=== PATIENT | female | born 1960 | race Caucasian/White ===

== ENCOUNTER 2023-12-26 14:00 | Emergency (ER) | payer MEDICARE, MEDICAID, SELFPAY ==
[2023-12-26] VITALS (8 sets, daily range): BP systolic 132–156; BP diastolic 69–98; PULSE 64–99; RESP 14–22; TEMP 36.1–37.1; O2SAT 90–98; BMI 32.3
--- NOTE | ~2023-12-26 | XR_ITS ---
EXAMINATION: XR CHEST CLINICAL INFORMATION: Change in mental status. COMPARISON: None available. TECHNIQUE: 2 views of the chest were obtained. FINDINGS: Heart size appears normal. There is no consolidation within either lung. No pleural effusion or pneumothorax. No acute osseous abnormality. XR/XR chest 2V IMPRESSION: Limited examination secondary to low lung volumes and body habitus. Within the limitations, no active disease is appreciated.
--- NOTE | 2023-12-26 14:08 | ECG_ITS ---
Test Reason : LATHARGIC Blood Pressure : / mmHG Vent. Rate : 058 BPM Atrial Rate : 058 BPM P-R Int : 168 ms QRS Dur : 072 ms QT Int : 494 ms P-R-T Axes : 025 016 034 degrees QTc Int : 484 ms Sinus bradycardia Otherwise normal ECG No previous ECGs available Referred By: Mehreen Calloway Electronically Signed By:CHRISTIAN ARCHULETA MD
--- NOTE | 2023-12-26 14:12 | ED.GENADULT ---
HPI - General Adult General Chief complaint: General Medical Stated complaint: ABNORMAL BEHAVIOR Source: patient and EMS Mode of arrival: EMS Limitations: altered mental status History of Present Illness HPI narrative: She presents via EMS coming from [facility]; transitional support services, a short-term residential program after detox or higher level of care, reportedly EMS was called for a ?psych evaluation . Upon their arrival she was noted to be endocrine in coherent, minimally responsive to their questions. Reportedly she received her 1st dose of methadone today at 95 mg. She is very lethargic upon arrival, she responds yes to any form of questioning and then soon thereafter falls back asleep. With loud verbal stimuli she does awake briefly, she denies any drug usage today. Unable to obtain history from patient Related Data Previous Rx's ?Medication ?Instructions ?Recorded cefuroxime axetil 250 mg tablet 250 mg PO Q12H #6 tabs 12/26/23 Allergies Allergy/AdvReac Type Severity Reaction Status Date / Time No Known Allergies Allergy Verified 12/26/23 16:31 Review of Systems Review of Systems: Yes all other systems are reviewed and are negative [facility] Past Medical History Attestation statement: The following information was validated with the patient. Source: old records reviewed Social History Social History Advance Directives: No Advance Directives Information Provided: No Do you have a plan to hurt others: No Plan Physical Exam ED Vital Signs: Vital Signs - 24 hr 12/26/23 15:43 12/26/23 15:55 12/26/23 16:36 Temperature 98.7 F 98.1 F Pulse Rate 87 77 Respiratory Rate 22 H 18 Blood Pressure 141/69 H 147/96 H Pulse Oximetry 94 94 Oxygen Delivery Method Room Air Room Air 12/26/23 17:15 12/26/23 18:06 12/26/23 20:09 Temperature 98.1 F 97.0 F 97.4 F Pulse Rate 67 64 99 Respiratory Rate 14 16 16 Blood Pressure 147/96 H 132/79 135/89 Pulse Oximetry 90 L 95 98 Oxygen Delivery Method Room Air Room Air Room Air 12/26/23 21:30 Temperature 97.4 F Pulse Rate 99 Respiratory Rate 16 Blood Pressure 135/89 Pulse Oximetry 98 Oxygen Delivery Method Room Air BMI result Body Mass Index 32.3 Appearance: Lethargic Eyes: Pupils equal, round and reactive to light, non constricted.? ENT: Pharynx normal.?? Neck: Normal inspection.? Neck supple.?? CVS: Heart sounds normal. Normal heart rate and rhythm.? Pulses normal.? Hypotensive? Respiratory: Decreased respirations Lung sounds with expiratory wheezing and prolonged expiratory phase Abdomen: Soft and non-tender. Normoactive bowel sounds. Skin: Skin warm and dry.? Skin appears pale for ethnicity.? ? Extremities: No lower extremity edema.? Neuro: Moves all extremities spontaneously. Course Reevaluation(s) Reevaluation #1: Nursing staff had difficulty obtaining IV access. Ultrasound-guided IV access was gained to the right antecubital. Good blood return and flushing well. Upon attempting to secure the IV she became more awake after intranasal Narcan administration pulling her arm away resulting in loss of the IV access. Adamant refusal to have re-attempt for IV access be obtained. She is violently aggressive towards staff yelling and swearing, I know you narcaned me . Time: 14:47 Reevaluation #2: CBC is without leukocytosis, normocytic anemia that does not meet transfusion criteria. Venous blood gases without evidence of respiratory acidosis. No electrolyte derangement. Magnesium 2.6, EKG reveals sinus bradycardia with ventricular rate of 58, no ST elevation, no ST depression, QT 494, QTC 484, reviewed by ED attending Dr. Brunson, recommendation for Mag 2g IV. Ammonia is within normal range. No evidence of CHF. Alcohol level nondetectable. Time: 14:57 Reevaluation #3: Patient received in sign-out at change of shift pending U tox, disposition. Patient is awake, oriented, ambulating to the bathroom without any assistance. She ambulates with a steady, even gait. The patient's U tox was negative except for methadone which she is prescribed. Patient expresses concern that she gets too many medications at once in the morning and ?this will keep happening. ? She would like to take half her methadone in the morning and half at night. The patient's UA also shows trace bacteria with 11-20 white cells and moderate leukocyte esterase. Time: 21:00 Medications Administered Discontinued Medications Generic Name Dose Route Start Last Admin Trade Name Freq PRN Reason Stop Dose Admin Albuterol Sulfate 2.5 mg 12/26/23 14:29 12/26/23 14:48 Albuterol Sulfate (0.083%) 2.5 Mg/3 Ml Vial.Neb INHALE 12/26/23 14:30 2.5 mg ONCE ONE Administration Albuterol/Ipratropium 3 ml 12/26/23 14:19 12/26/23 14:26 Albuterol/Iprat 2.5/0.5mg 3 Ml Ampul.Neb INHALE 12/26/23 14:20 3 ml ONCE ONE Administration Dicyclomine HCl 10 mg 12/26/23 15:43 12/26/23 16:38 Dicyclomine Hcl 10 Mg Capsule PO 12/26/23 15:44 Not Given ONCE ONE Magnesium Sulfate 2 gm in 50 mls @ 150 mls/hr 12/26/23 14:20 12/26/23 15:34 Magnesium Sulfate/H2o IV 12/26/23 14:39 Not Given ONCE ONE Ondansetron HCl 4 mg 12/26/23 15:45 12/26/23 16:37 Ondansetron Odt 4 Mg Tab.Rapdis TRANSLINGU 12/26/23 15:46 Not Given ONCE ONE Procedures EJ/Peripheral Line Arm L: Time Out Performed: Yes Skin Cleansed in Sterile Fashion: Yes Size (gauge): 20 IV Secured and Dressing Applied: Yes Patient Tolerated Procedure: well Additional Comments: patient subsequently removed IV access during agitation after Narcan administration. Medical Decision Making Medical Decision Making MDM Narrative: Patient is a 63-year-old female who presents to the emergency department coming from [facility], papers from facility indicate a history of kidney disease, COPD, ulcers, hepatitis-C, migraines, anemia, chronic back pain, substance use disorder presenting today lethargic, per EMS report she was sent here for a psych evaluation. She is arousable to loud verbal stimuli, providing minimal warranted responses. She is noted to have a prolonged expiratory phase with expiratory wheezing, given her history of COPD concern for CO2 retention, patient be placed on capnography, will obtain venous gas, history of hep C will obtain ammonia level as well, guven history of substance use and methadone, will trial intranasal narcan 4mg, CBC to evaluate for leukocytosis/ anemia, CMP and lipase to evaluate for abnormal electrolytes /abnormal renal function/ abnormal hepatic/biliary function, EKG and troponin to evaluate for ischemia/ACS. Chest x-ray to evaluate for consolidation/ infiltrate/ mass/ pulmonary congestion, toxicology, Urinalysis. Differential Diagnosis Differential Diagnoses: The differential diagnosis associated with the presentation includes (See narrative above) Admission/Observation Consideration of admission/observation: Escalation of care including admission/observation considered (See narrative above and course narrative for further detail) Lab Data 12/26/23 14:26 12/26/23 14:26 Labs: Lab Results 12/26/23 12/26/23 Range/Units 14:26 20:30 WBC 5.1 (4.8-10.8) X10*3/uL RBC 3.77 L (4.20-5.50) X10*6/uL Hgb 10.7 L (12.0-16.0) g/dl Hct 32.0 L (37.0-47.0) % MCV 84.9 (80.0-98.0) fL MCH 28.4 (27.0-33.0) pg MCHC 33.4 (31.0-35.0) g/dl RDW 14.3 (11.0-16.0) % Plt Count 218 (160-400) X10*3/uL MPV 10.3 (9.4-12.3) fL Immature Gran % (Auto) 0.2 (0.0-0.4) % Neut % (Auto) 47.6 (45-73) % Lymph % (Auto) 41.1 H (20-40) % Burnett % (Auto) 6.6 (2-11) % Eos % (Auto) 3.7 (0-4) % Baso % (Auto) 0.8 (0-2) % Lymph # (Auto) 2.1 (1.2-4.9) X10*3/uL [place]ett # (Auto) 0.3 (0.1-1.2) X10*3/uL Eos # (Auto) 0.2 (0.0-0.4) X10*3/uL Baso # (Auto) 0.0 (0.0-0.2) X10*3/uL Abs Immat Gran (auto) 0.01 (0.00-0.03) X10*3/uL Absolute Neuts (auto) 2.4 (2.0-8.3) x10*3/uL Absolute Nucleated RBC 0.000 (0.0-0.012) X10*3/uL Nucleated RBC % (auto) 0.0 (0.0-0.2) /100WBC PT 12.1 (11.1-13.3) SEC INR 1.0 (0.9-1.1) VBG pH 7.34 (7.32-7.43) VBG pCO2 37 mmHg VBG pO2 77 mmHg VBG HCO3 20 L (22-26) mmol/L VBG O2 Saturation 97.0 % VBG Base Excess -4.3 mmol/L Sodium 138 (135-145) mmol/L Potassium 4.3 (3.3-5.1) mmol/L Chloride 108 (96-108) mmol/L Carbon Dioxide 20 L (22-29) mmol/L Anion Gap 14 (12-20) BUN 15 (9-16) mg/dL Creatinine 1.38 (0.5-1.4) mg/dL Estim Creat Clear Calc TNP Estimated GFR 38 Random Glucose 126 H (60-115) mg/dL Calcium 8.6 (8.4-10.2) mg/dL Magnesium 2.6 (1.6-2.6) mg/dL Total Bilirubin 0.2 (0.0-1.0) mg/dL AST 13 (5-31) U/L ALT 7 (0-31) U/L Alkaline Phosphatase 84 (39-117) U/L Ammonia 38 (13-55) umol/L Troponin I High Sens < 2.7 (<3.5-17.0) ng/L B-Natriuretic Peptide 46 (<100) pg/mL Total Protein 7.3 (6.5-8.0) g/dL Albumin 4.2 (3.5-5.0) g/dL Lipase 16 (8-78) U/L Urine Color Yellow Urine Appearance Clear Urine pH 7.5 (5.0-9.0) Ur Specific [place] 1.010 (1.005-1.025) Urine Protein Negative (Neg-Trace) mg/dL Urine Glucose (UA) Negative (Negative) mg/dL Urine Ketones Negative (Negative) mg/dL Urine Blood Negative (Negative) Urine Nitrite Negative (Negative) Ur Leukocyte Esterase Moderate (2+) H (Negative) Urine RBC 0-2 (0-2) /HPF Urine WBC 11-20 H (0-5) /HPF Ur Squamous Epith Cells 11-20 (0-2) /HPF Urine Bacteria Trace (None Seen) Hyaline Casts 0-2 (0-2) /LPF Urine Opiates Screen Not Detected (Not Detect) Ur Buprenorphine Scrn Not Detected (Not Detect) ng/mL Ur Oxycodone Screen Not Detected (Not Detect) ng/mL Urine Methadone Screen Positive H (Not Detect) ng/mL Urine Fentanyl Screen Not Detected (Not Detect) Ur Barbiturates Screen Not Detected (Not Detect) Ur Phencyclidine Scrn Not Detected (Not Detect) Ur Amphetamines Screen Not Detected (Not Detect) U Benzodiazepines Scrn Not Detected (Not Detect) Urine Cocaine Screen Not Detected (Not Detect) U Marijuana (THC) Screen Not Detected (Not Detect) Ethyl Alcohol < 10 mg/dL Influenza Type A (PCR) NEGATIVE (Negative) Influenza Type B (PCR) NEGATIVE (Negative) RSV RNA Qual (PCR) NEGATIVE (Negative) SARS-CoV-2 RNA (RT-PCR) NEGATIVE (Negative) Critical Care Time Critical Care Time Critical Care Time: Yes Total Critical Care Time: 60 Attestation: I personally attest to this critical care time spent taking care of the patient exclusive of all other billable procedures was approximately 60 minutes including initial evaluation of patient, ordering tests, x-ray interpretation, EKG interpretation, medical consultation, documentation, re-evaluation. Discharge Plan Discharge Clinical Impression: Altered mental status, Urinary tract infection Patient Disposition: Home, Self-Care Instructions: Urinary Tract Infection in Women (ED) Additional Instructions: Your workup was significant for UTI. Take the cefuroxime twice daily for 3 days Your tox screen did not show anything except for methadone which you are prescribed. I recommed that you take half of your dose in the morning and half at night to prevent polypharmacy Prescriptions: New cefuroxime axetil 250 mg tablet 250 mg PO Q12H Qty: 6 0RF Interventions: ED Discharge Assessment Last Done: 12/26/23 21:30 Discharge Date/Time: 12/26/23 21:30 Print Language: Turkmen
[2023-12-26] MEDS: Albuterol/Iprat 2.5/0.5MG 3 ML AMPUL.NEB INHALE (14:26)
[2023-12-26 14:31] LABS: MANUAL DIFF FLAG NO
[2023-12-26 14:33] LABS: Basophils Percent Auto 0.8 % (0-2); Eosinophils Absolute Auto 0.2 X10*3/uL (0.0-0.4); Eosinophils Percent Auto 3.7 % (0-4); Hemoglobin 10.7 g/dl (12.0-16.0); Imm Gran Abs Auto 0.01 X10*3/uL (0.00-0.03); Imm Gran Pct Auto 0.2 % (0.0-0.4); Lymphocytes Absolute Auto 2.1 X10*3/uL (1.2-4.9); Lymphocytes Percent Auto 41.1 % (20-40); Mean Corpuscular HGB Conc 33.4 g/dl (31.0-35.0); Mean Corpuscular Hemoglobin 28.4 pg (27.0-33.0); Mean Corpuscular Volume 84.9 fL (80.0-98.0); Mean Platelet Volume 10.3 fL (9.4-12.3); Monocytes Absolute Auto 0.3 X10*3/uL (0.1-1.2); Monocytes Percent Auto 6.6 % (2-11); Neutrophils Absolute Auto 2.4 x10*3/uL (2.0-8.3); Neutrophils Percent Auto 47.6 % (45-73); Platelet Count 218 X10*3/uL (160-400); Red Blood Count 3.77 X10*6/uL (4.20-5.50); Red Cell Distribution Width 14.3 % (11.0-16.0); White Blood Count 5.1 X10*3/uL (4.8-10.8)
[2023-12-26 14:34] LABS: VBG Base Excess -4.3 mmol/L; VBG HCO3 20 mmol/L (22-26); VBG pCO2 37 mmHg; VBG pH 7.34 (7.32-7.43); VBG pO2 77 mmHg
[2023-12-26 14:36] LABS: Venous Blood Gas Refer to POC result
[2023-12-26 14:38] LABS: Prothrombin Time 12.1 SEC (11.1-13.3)
[2023-12-26 14:39] LABS: Ammonia 38 umol/L (13-55)
[2023-12-26 14:46] LABS: Ethanol < 10 mg/dL
[2023-12-26] MEDS: Albuterol Sulfate (0.083%) 2.5 MG/3 ML VIAL.NEB INHALE (14:48)
[2023-12-26 14:49] LABS: Alanine Aminotransferase 7 U/L (0-31); Albumin Level 4.2 g/dL (3.5-5.0); Alkaline Phosphatase 84 U/L (39-117); Anion Gap 14 (12-20); Aspartate Amino Transferase 13 U/L (5-31); Bilirubin Total 0.2 mg/dL (0.0-1.0); Blood Urea Nitrogen 15 mg/dL (9-16); Calcium 8.6 mg/dL (8.4-10.2); Carbon Dioxide 20 mmol/L (22-29); Chloride 108 mmol/L (96-108); Estimated Glomerular Filt Rate 38; Glucose Random 126 mg/dL (60-115); Lipase 16 U/L (8-78); Magnesium 2.6 mg/dL (1.6-2.6); Potassium 4.3 mmol/L (3.3-5.1); Sodium 138 mmol/L (135-145); Total Protein 7.3 g/dL (6.5-8.0)
[2023-12-26 14:53] LABS: B Type Natriuretic Peptide 46 pg/mL (<100)
[2023-12-26 14:58] LABS: Troponin-I High Sensitivity < 2.7 ng/L (<3.5-17.0)
[2023-12-26 15:30] LABS: Influenza A PCR NEGATIVE (Negative); Influenza B PCR NEGATIVE (Negative); Resp Syncy Virus RNA Qual PCR NEGATIVE (Negative); SARS COV2 PCR INHOUSE NEGATIVE (Negative)
--- NOTE | 2023-12-26 15:35 | PC.NURSE ---
Upon arrival patient lethargic and arousable to verbal and tactile stimulation. hypotensive, provider aware. Multiple attempts made to get IV access by RN and provider using ultrasound unsucesful. Patient given 4mg nasal narcan and became more alert. Comabtive during attempt to place IV. Removed IV, removed, leads, refusing admin of any medications. Agitated that narcan was given
--- NOTE | 2023-12-26 16:12 | MHC.EDTECH ---
THIS PCT ASSUMED CARE OF PATIENT AT 1500 ,PATIENT WAS CHANGE INTO HOSPITAL ATTIRE , ALL PATIENT BELONGING ARE LOCKED UP IN DECON .PATIENT IS VERY ALTERED RN LEAD IS AWARE ,PATIENT OBSERVER AT BEDSIDE .
--- NOTE | 2023-12-26 16:38 | PC.NURSE ---
Patient returned from imaging, vss, nsr on monitor. Patient aware that provider ordered po medication. stating no she is not taking any medications . becomes agitated when trying to obtain vitals signs, falls back to sleep easily
--- NOTE | 2023-12-26 18:47 | PC.NURSE ---
Patient resting comfortably, vss, denies pain or discomfort , nsr on monitor. awakaens to verbal stimul, reports feels fine
--- NOTE | 2023-12-26 20:06 | PC.NURSE ---
this rn assumed care of pt, pt arousable by name,alert and oriented. pt at this time reporting she feels better and would like to leave, pt instructed to provider urine sample at this time per provider order.
[2023-12-26 20:43] LABS: Appearance Urine Clear; Color Urine Yellow; Glucose Urine UA Negative (Negative); Leukocyte Esterase Urine Moderate (2+) (Negative); Nitrite Urine Negative (Negative); PH 7.5 (5.0-9.0); UMIC TRIGGER UACC YES; Urine Blood Negative (Negative); Urine Ketones Negative (Negative); Urine Protein Negative (Neg-Trace)
[2023-12-26 20:48] LABS: Bacteria Urine Trace (None Seen); Hyaline Casts Urine 0-2 /LPF (0-2); RBC Urine 0-2 /HPF (0-2); UACC Culture Trigger YES
[2023-12-26 20:53] LABS: Amphetamine Screen Urine Not Detected (Not Detect); Barbiturates, Urine Not Detected (Not Detect); Benzodiazepines Screen Urine Not Detected (Not Detect); Buprenorphine Scr Not Detected (Not Detect); Cannabinoid Screen Urine Not Detected (Not Detect); Cocaine Screen Urine Not Detected (Not Detect); Fentanyl, urine Not Detected (Not Detect); Methadone Screen, Urine Positive (Not Detect); Opiate Screen Urine Not Detected (Not Detect); Oxycodone Screen Urine Not Detected (Not Detect); Phencyclidine Screen Urine Not Detected (Not Detect)
--- NOTE | 2023-12-26 21:14 | PC.NURSE ---
attempted to reach [facility] for transport for pt, no answer at this time.
--- NOTE | 2023-12-26 21:23 | PC.NURSE ---
dry pan charger Trista booked janny for pt, pt ambulated to decon with steady giat.
== END 2023-12-26 21:30 | disposition home or self-care (01) ==
PROVIDERS: Nurse Practitioner Family; Emergency Provider Student in an Organized Health Care Education/Training Program
DX: N39.0 Urinary tract infection, site not specified (principal); R41.82 Altered mental status, unspecified; R06.2 Wheezing; R53.83 Other fatigue; R45.1 Restlessness and agitation; F11.20 Opioid dependence, uncomplicated; Z11.52 Encounter for screening for COVID-19; Z20.828 Contact with and (suspected) exposure to other viral communicable diseases
CPT/HCPCS: 0241U; 36415; 36573; 71046; 80053; 80307; 81001; 82140; 82803; 83690; 83735; 83880; 84484; 85025; 85610; 87086; 93005; 99284; 99285

== ENCOUNTER → 2023-12-26 14:08 | Outpatient (BNV) | payer MEDICAID, SELFPAY | PROVIDERS: Emergency Provider Student in an Organized Health Care Education/Training Program; Visit Provider Internal Medicine Cardiovascular Disease | DX: R00.1 Bradycardia, unspecified (principal) | CPT/HCPCS: 93010 ==

== ENCOUNTER 2024-07-23 18:11 | Inpatient (IN) | payer MEDICARE, MEDICAID, SELFPAY ==
--- NOTE | 2024-07-23 19:19 | PC.ADMIT ---
Pt. arrived on unit via stretcher at 18:25 accompanied by 2 horse trader. Pt. hyperverbal and initially uncooperative with changeover. Eventually changeover with skin check and contraband search was conducted. Pt. with bald, red area on scalp which she is requesting to be biopsied. Open area L ear. Pt. refusing to give up jewelry for safekeeping so assistance from security was needed.
[2024-07-23 19:47] VITALS: BP 161/92; PULSE 65; RESP 22; TEMP 36.6; O2SAT 93
--- NOTE | 2024-07-23 19:51 | PC.NURSE ---
[facility] notified with pt. name and location per her request.
[2024-07-24] MEDS: Omeprazole 20 MG CAPSULE.DR PO (06:38)
[2024-07-24 08:00] VITALS: BP 167/93; PULSE 77; RESP 18; TEMP 36.3; O2SAT 97
[2024-07-24] MEDS: amLODIPine Besylate 2.5 MG TABLET PO (09:18)
[2024-07-24] MEDS: lisinopriL 10 MG TABLET PO (09:18)
[2024-07-24] MEDS: clonazePAM 1 MG TABLET PO ×2 (09:18→20:25)
[2024-07-24] MEDS: FLUoxetine HCl 20 MG CAPSULE PO (09:18)
[2024-07-24] MEDS: Cholecalciferol (Vitamin D3) 25 MCG TABLET PO (09:18)
[2024-07-24] MEDS: Gabapentin 400 MG CAPSULE 800 MG PO ×3 (09:18→20:25)
[2024-07-24] MEDS: Furosemide 40 MG TABLET PO (09:18)
[2024-07-24] MEDS: methADONE HCl 20 MG/2 ML ORAL.CONC 130 MG PO (09:21)
[2024-07-24] MEDS: Fluticasone Propionate Nasal 16 GM SPRAY 1 SPRAY NOSTRIL-B ×2 (09:29→20:18)
[2024-07-24] MEDS: Topiramate 25 MG TABLET PO (09:29)
[2024-07-24] MEDS: cloNIDine HCL 0.2 MG TABLET PO ×2 (09:29→20:57)
[2024-07-24] MEDS: Promethazine HCL 25 MG TABLET 50 MG PO ×2 (09:45→20:20)
--- NOTE | 2024-07-24 10:05 | PM.IMHP ---
History of Present Illness Date of Service: 07/24/24 Attending physician on admission: Soham Naylor Chief Complaint: I have anxiety issues and taking high doses of benzodiazepines Kaleigh Fallon is a 64 years old woman past medical history significant for hypertension and PUD has been admitted to the geropsych unit. She seems very concerned about no receiving her medications yet. She also stated that she take high doses of benzodiazepines such as clonazepam and Xanax. She denied any acute complaint such as pain. She denied any acute cardiopulmonary, gastrointestinal or genitourinary symptoms. She stated that she takes methadone for chronic pain that she has been clean for a long time. Review of Systems Review of Systems: All 12 systems were reviewed and normal except as noted in HPI. [facility] Medical History (Updated 07/24/24 @ 10:07 by Soham Naylor MD) Essential hypertension PUD (peptic ulcer disease) Surgical History (Updated 07/24/24 @ 10:07 by Soham Naylor MD) H/O sinus surgery Social History Household Members: None Housing: Homeless Do you presently have visiting nurse or other home services: No Patient Tobacco Use Status: Former Tobacco user Use of substances other than those prescribed or required for medical reasons: No Have you been hit, kicked, punched, or otherwise hurt by someone within the past year? If so, by whom?: No Spiritual Healthcare Practices: congregational Advance Directives: No Advance Directives Information Provided: No Do you have a plan to hurt others: No Plan Recently lost weight without trying: No Nutrition Risks: No Nutritional Risk Patient : No : No Poor oral hygiene: Yes Meds Allergies Allergy/AdvReac Type Severity Reaction Status Date / Time codeine Allergy Unknown Verified 07/23/24 22:55 Sulfa (Sulfonamide Allergy Unknown Verified 07/23/24 22:55 Antibiotics) Active Medications: Current Medications Acetaminophen (Acetaminophen 325 Mg Tablet) 650 mg PO Q6H PRN PRN Reason: Headache/Pain Mild Scale (1-3) Al Hydroxide/Mg Hydroxide (Magnesium Hydrox/Alum Hydrox 30 Ml Oral.Susp) 30 ml PO Q6H PRN PRN Reason: Heartburn/Nausea Albuterol Sulfate (Albuterol Sulfate 90 Mcg 8 Gm Inhaler) 1 puff INHALE Q2H PRN PRN Reason: asthma Alprazolam (Alprazolam 0.5 Mg Tablet) 1 mg PO DAILY PRN PRN Reason: panic attack Amlodipine Besylate (Amlodipine Besylate 2.5 Mg Tablet) 2.5 mg PO DAILY [facility]; Protocol Last Admin: 07/24/24 09:18 Dose: 2.5 mg Clonazepam (Clonazepam 1 Mg Tablet) 1 mg PO BID [facility] Last Admin: 07/24/24 09:18 Dose: 1 mg Clonidine HCl (Clonidine Hcl 0.2 Mg Tablet) 0.2 mg PO TID [facility]; Protocol Last Admin: 07/24/24 09:29 Dose: 0.2 mg Diphenhydramine HCl (Diphenhydramine Hcl 25 Mg Capsule) 50 mg PO BEDTIME PRN PRN Reason: insomnia Fluoxetine HCl (Fluoxetine Hcl 20 Mg Capsule) 20 mg PO DAILY [facility] Last Admin: 07/24/24 09:18 Dose: 20 mg Fluticasone Propionate (Fluticasone Propionate Nasal 16 Gm [place]) 1 spray NOSTRIL-B BID [facility] Last Admin: 07/24/24 09:29 Dose: 1 spray Furosemide (Furosemide 40 Mg Tablet) 40 mg PO DAILY [facility]; Protocol Last Admin: 07/24/24 09:18 Dose: 40 mg Gabapentin (Gabapentin 400 Mg Capsule) 800 mg PO TID [facility] Last Admin: 07/24/24 09:18 Dose: 800 mg Hydroxyzine HCl (Hydroxyzine Hcl 25 Mg Tablet) 25 mg PO Q6H PRN PRN Reason: Anxiety Lisinopril (Lisinopril 10 Mg Tablet) 10 mg PO DAILY [facility]; Protocol Last Admin: 07/24/24 09:18 Dose: 10 mg Magnesium Hydroxide (Milk Of Magnesia 30 Ml Oral.Susp) 30 ml PO DAILY PRN PRN Reason: Constipation Methadone HCl (Methadone Hcl 20 Mg/2 Ml Oral.Conc) 130 mg PO DAILY [facility] Last Admin: 07/24/24 09:21 Dose: 130 mg Mirtazapine (Mirtazapine 30 Mg Tablet) 30 mg PO BEDTIME [facility] Nicotine (Nicotine 21 Mg Patch.Td24) 21 mg TRANSDERMA DAILY [facility] Last Admin: 07/24/24 09:47 Dose: Not Given Nicotine Polacrilex (Nicotine Polacrilex 2 Mg Gum) 2 mg BUCCAL Q2H PRN PRN Reason: Nicotine Cravings Omeprazole (Omeprazole 20 Mg Capsule.Dr) 20 mg PO DAILY@0630 [facility] Last Admin: 07/24/24 06:38 Dose: 20 mg Promethazine HCl (Promethazine Hcl 25 Mg Tablet) 50 mg PO Q8H PRN PRN Reason: nausea Last Admin: 07/24/24 09:45 Dose: 50 mg Topiramate (Topiramate 25 Mg Tablet) 25 mg PO DAILY [facility] Last Admin: 07/24/24 09:29 Dose: 25 mg Trazodone HCl (Trazodone Hcl 50 Mg Tablet) 50 mg PO BEDTIME MRX1 PRN PRN Reason: Insomnia Vitamin D (Cholecalciferol (Vitamin D3) 25 Mcg Tablet) 25 mcg PO DAILY [facility] Last Admin: 07/24/24 09:18 Dose: 25 mcg Home Medications ?Medication ?Instructions ?Recorded ?Confirmed ?Last Taken ?Type albuterol sulfate 90 mcg/actuation 1 puff inhalation Q2H PRN asthma 07/23/24 07/24/24 Unknown History aerosol inhaler alprazolam 1 mg tablet 1 mg PO DAILY PRN panic attack 07/23/24 07/24/24 Unknown History amlodipine 2.5 mg tablet 2.5 mg PO DAILY blood pressure 07/23/24 07/24/24 Unknown History diphenhydramine HCl 50 mg capsule 50 mg PO BEDTIME PRN insomnia 07/23/24 07/24/24 Unknown History (Banophen) Topamax 25 mg PO DAILY 07/24/24 07/24/24 Unknown History cholecalciferol (vitamin D3) 25 mcg PO DAILY 07/24/24 07/24/24 Unknown History clonazepam 1 mg tablet 1 mg PO BID anxiety 07/24/24 07/24/24 Unknown History clonidine HCl 0.2 mg tablet 0.2 mg PO TID anxiety 07/24/24 07/24/24 Unknown History docusate sodium 100 mg PO 07/24/24 Unknown History fluoxetine 20 mg PO DAILY 07/24/24 07/24/24 Unknown History fluticasone propionate 50 1 spray intranasal BID 07/24/24 07/24/24 Unknown History mcg/actuation nasal spray,suspension furosemide 40 mg tablet 40 mg PO DAILY 07/24/24 07/24/24 Unknown History gabapentin 800 mg tablet 800 mg PO TID 07/24/24 07/24/24 Unknown History ibuprofen 800 mg tablet 800 mg PO Q8H PRN pain 07/24/24 07/24/24 Unknown History lisinopril 10 mg tablet 10 mg PO DAILY 07/24/24 07/24/24 Unknown History methadone 130 mg PO DAILY 07/24/24 07/24/24 Unknown History mirtazapine 30 mg tablet 30 mg PO BEDTIME 07/24/24 07/24/24 Unknown History nicotine 21 mg transdermal DAILY 07/24/24 07/24/24 Unknown History omeprazole 20 mg capsule,delayed 20 mg PO QAM 07/24/24 07/24/24 Unknown History release pantoprazole 40 mg tablet,delayed 40 mg PO DAILY 07/24/24 07/24/24 Unknown History release promethazine 50 mg tablet 50 mg PO Q8H PRN nausea 07/24/24 07/24/24 Unknown History Physical Exam Vital Signs and Narrative: Vital Signs: Last Vital Signs Temp 97.9 F 07/23/24 19:47 Pulse 65 07/23/24 19:47 Resp 22 H 07/23/24 19:47 BP 161/92 H 07/23/24 19:47 Pulse Ox 93 07/23/24 19:47 O2 Del Method Room Air 07/23/24 19:47 Constitutional - Awake and Alert, No apparent distress. HEENT - PER, EOMI. Normal sclerae Heart - S1S2, RRR. No murmurs Lungs - Normal lung expansion, Normal respiratory effort, No respiratory distress, CTA bilaterally Abdomen - NT / ND; +BS; No rebound or guarding Extremities - no calf tenderness bilaterally, no swelling Musculoskeletal - Normal inspection, normal ROM Skin - Warm/Dry Neurological - Alert & oriented x3. Psychological - Anxious affect Assessment and Plan (1) PUD (peptic ulcer disease): Status: Acute (2) Essential hypertension: Status: Acute Plan Kaleigh Fallon is a 64 y/o woman admitted to the geriatric psychiatric service with: Essential hypertension. Continue amlodipine, lisinopril and clonidine. PUD. Continue PPI. Anxiety. Treatment deferred to psychiatric service. Quality Stroke Does the patient have a stroke diagnosis?: No VTE Prior VTE?: No VTE Risk Level:: Medical - low VTE Device Contraindication: Treatment Not Indicated VTE Drug Contraindication: Treatment Not Indicated
[2024-07-24 10:11] LABS: Estimated Average Glucose 103 mg/dL; Hemoglobin A1C 86.9969 umol/L; Hemoglobin A1c % 5.2 % (<6.0); Total Hemoglobin (HGBA1C) 2600.3828 umol/L
[2024-07-24 10:21] LABS: Cholesterol 191 mg/dL (<200); HDL Cholesterol 71 mg/dL (>40); LDL Cholesterol Calculated 96 mg/dL (<100); Triglycerides 121 mg/dL (<150)
[2024-07-24 10:32] LABS: Free T4 (Free Thyroxine) 0.93 ng/dL (0.71-1.85); Thyroid Stimulating Hormone 2.07 uIU/mL (0.32-4.0)
[2024-07-24 10:48] LABS: Folate 14.8 ng/mL (> or = 4.0); Vitamin B12 532 pg/mL (200-900)
--- NOTE | 2024-07-24 14:24 | P.HPPS_ITS ---
HPI Date of Service: 07/24/24 Chief Complaint: Bipolar unspecified Sources of Information: patient interviewed, chart reviewed and crisis/core team assessment reviewed HPI Subjective Notes: Conditional Voluntary Healthcare Proxy: No Guardianship: No Medical Problems Affecting Mental Status: No Narrative: 64yo who presents in transfer from [facility]- after she was delirious/or xs somnolent at court after taking x number of benzos on top of gabapentin and methadone- though patient insists she was having a drug adverse event despite taking all the usual medications nothing extra She then was transferred to [facility] from [facility] and given narcan somewhere in ambulance or er - and pt became agitated- She had gone to court from [facility] where she was getting rehab for bilateral edema after having had 2 bleeding ulcers the week before at [facility] and since patient is essentially homeless living in her car or other- ( awaiting issues with her sec 8 and sign artist ) Denies any labile behavior at [facility] and keeps repeating the place is run by 24 yo who has an ax to grind with patient- Here on unit she pushing for inc clonazepam , saying she was on 1mg tid ( as well as xanax 1mg tid) prior provider- (05/2024 by oil burner mechanic this is accurate) Also confirmed gabapentin 800 tid. Also patient concerned to get short stay as has scalp lesion that was supposed to have been biopsied 07/08 when she ended up in hospital with ulcers- denies etoh use- Past Psychiatric History: Outpatient care at [facility] by patient report, prior inpatient psych at [facility] in past- Methadone clinic for pain States her only diagnosis is Severe anxiety disorder with panic Has been on benzodiazepines for 25 + years she reports Medical Evaluation Reviewed: Hospitalist Jorge Luis Pending reviewed record from [facility] medical issues include OA DJD of lower spine,backpain with sciatica (lumbar Spondylosis) peptic ulcer bilateral leg edema hx bipolar do chronic nausea, colon polyp Encephalomalacia on imaging study Hep C HTN IBS [facility] Medical History (Updated 07/24/24 @ 19:15 by Carolyn Gooden MD) Panic Essential hypertension PUD (peptic ulcer disease) Narrative: see above review of med problems from [facility] Surgical History (Updated 07/24/24 @ 10:07 by Soham Naylor MD) H/O sinus surgery Family History: give brother's address as her home address- Social History: lost sec 8 housing 2022, has a sign artist pending around that issue, may be living in her car- Substance History: denies etoh use, hx benzo dependence for years- Trauma History: likely not reviewed today Diagnostics Vital Signs (24Hr): Vital Signs - 24 hr 07/23/24 19:47 07/24/24 08:00 Temperature 97.9 F 97.3 F Pulse Rate 65 77 Respiratory Rate 22 H 18 Blood Pressure 161/92 H 167/93 H Pulse Oximetry 93 97 Oxygen Delivery Method Room Air Room Air Labs Labs: Laboratory Results - last 48 hr 07/24/24 09:39 Estimat Average Glucose 103 Hemoglobin A1c % 5.2 Triglycerides 121 Cholesterol 191 LDL Cholesterol, Calc 96 HDL Cholesterol 71 Vitamin B12 532 Folate 14.8 TSH 2.07 Free T4 0.93 Meds/Allergies Meds Home Medications ?Medication ?Instructions ?Recorded ?Confirmed ?Type albuterol sulfate 90 mcg/actuation 1 puff inhalation Q2H PRN asthma 07/23/24 07/24/24 History aerosol inhaler alprazolam 1 mg tablet 1 mg PO DAILY PRN panic attack 07/23/24 07/24/24 History amlodipine 2.5 mg tablet 2.5 mg PO DAILY blood pressure 07/23/24 07/24/24 History diphenhydramine HCl 50 mg capsule 50 mg PO BEDTIME PRN insomnia 07/23/24 07/24/24 History (Banophen) Topamax 25 mg PO DAILY 07/24/24 07/24/24 History cholecalciferol (vitamin D3) 25 mcg PO DAILY 07/24/24 07/24/24 History clonazepam 1 mg tablet 1 mg PO BID anxiety 07/24/24 07/24/24 History clonidine HCl 0.2 mg tablet 0.2 mg PO TID anxiety 07/24/24 07/24/24 History docusate sodium 100 mg PO 07/24/24 History fluoxetine 20 mg PO DAILY 07/24/24 07/24/24 History fluticasone propionate 50 1 spray intranasal BID 07/24/24 07/24/24 History mcg/actuation nasal spray,suspension furosemide 40 mg tablet 40 mg PO DAILY 07/24/24 07/24/24 History gabapentin 800 mg tablet 800 mg PO TID 07/24/24 07/24/24 History ibuprofen 800 mg tablet 800 mg PO Q8H PRN pain 07/24/24 07/24/24 History lisinopril 10 mg tablet 10 mg PO DAILY 07/24/24 07/24/24 History methadone 130 mg PO DAILY 07/24/24 07/24/24 History mirtazapine 30 mg tablet 30 mg PO BEDTIME 07/24/24 07/24/24 History nicotine 21 mg transdermal DAILY 07/24/24 07/24/24 History omeprazole 20 mg capsule,delayed 20 mg PO QAM 07/24/24 07/24/24 History release pantoprazole 40 mg tablet,delayed 40 mg PO DAILY 07/24/24 07/24/24 History release promethazine 50 mg tablet 50 mg PO Q8H PRN nausea 07/24/24 07/24/24 History Allergies Allergies Allergy/AdvReac Type Severity Reaction Status Date / Time codeine Allergy Unknown Verified 07/23/24 22:55 Sulfa (Sulfonamide Allergy Unknown Verified 07/23/24 22:55 Antibiotics) Mental Status Exam Mental Status Exam Narrative: nursing reports pt nodding off thru day in open area- Patient Appearance: Disheveled and Appropriate Patient Orientation: Person, Place, Time and Situation Level of Consciousness: Awake and Appropriate Patient Behavior: Talkative, Distractible and Good Eye Contact Mood Description: Calm and Labile Affect Description: Calm and Expansive Patient Cognition Impaired: No Ability to Follow Directions: Fair Speech Pattern: Clear Memory Description: Intact Hallucinations: None Delusions: Not Present Thought Process: Racing Thought Content: positive for Perseveration (focused on need for certain medications - and issues with [place]/housing) Depressive Symptoms: Increased Irritability and Difficulty Concentrating Abnormal Motor Activity Signs and Symptoms: Restlessness Judgement: Poor Assessment & Plan Assessment & Plan (1) PUD (peptic ulcer disease): Status: Acute Code(s): K27.9 - Peptic ulcer, site unspecified, unspecified as acute or chronic, without hemorrhage or perforation Assessment and Plan: on omeprazole here had had bloody stools few weeks ago [place] Hospitalization fora week (2) Essential hypertension: Status: Acute Code(s): I10 - Essential (primary) hypertension (3) Bipolar 1 disorder with moderate zeke: Status: Acute Code(s): F31.12 - Bipolar disorder, current episode manic without psychotic features, moderate Assessment and Plan: on gabapentin (maybe for pain ) but also fluoxetine 20mg (someone had increased her to 60mg? by her report- she went back down to 20mg- (4) Benzodiazepine dependence: Status: Acute Code(s): F13.20 - Sedative, hypnotic or anxiolytic dependence, uncomplicated Assessment and Plan: many years dependence- likely no longer useful - but would be difficult/may be some risk of tapering though should be considered given methadone/gabapentin combo (5) Opiate dependence: Status: Acute Code(s): F11.20 - Opioid dependence, uncomplicated Assessment and Plan: on methadone for chronic back pain (6) Panic: Status: Acute Code(s): F41.0 - Panic disorder [episodic paroxysmal anxiety] Assessment and Plan: ? trauma ptsd- need further information/interviewing- Plan 64 yo WF who likely took too much medication prior to court- or drug drug interaction from combo of benzo, gabapentin and methadone- resulting in lower level of consciousness and getting narcan became agitated- now admtted due to this behavior - and ? manicky presentation- Patient educated on: medication risk/benefits Informed Consent: further education needed Reason for continued inpatient stay Substantial Risk for: inability to function, rapid decompensation and med/psych decompensation Statement Statement: I have reviewed the history and physical and performed a pertinent examination on my patient. No changes have occurred unless specified. If the History and Physical was not performed prior to admission, the Hospitalist's service will be consulted for completing the admission physical. Time Spent With Patient Time: Total time managing care of this patient today ____ minutes.
[2024-07-24 20:00] VITALS: BP 98/61; PULSE 63; RESP 16; TEMP 36.6; O2SAT 95
[2024-07-24] MEDS: Mirtazapine 30 MG TABLET PO (20:25)
[2024-07-24 20:35] VITALS: BP 98/61
[2024-07-24 20:57] VITALS: BP 117/69
[2024-07-24] MEDS: diphenhydrAMINE HCL 25 MG CAPSULE 50 MG PO (23:57)
[2024-07-25] MEDS: Omeprazole 20 MG CAPSULE.DR PO (06:37)
[2024-07-25 08:27] VITALS: BP 125/60; PULSE 69; RESP 17; TEMP 36.1; O2SAT 94
[2024-07-25] MEDS: methADONE HCl 20 MG/2 ML ORAL.CONC 130 MG PO (08:46)
[2024-07-25] MEDS: Gabapentin 400 MG CAPSULE 800 MG PO ×3 (08:52→20:21)
[2024-07-25] MEDS: Cholecalciferol (Vitamin D3) 25 MCG TABLET PO (08:52)
[2024-07-25] MEDS: amLODIPine Besylate 2.5 MG TABLET PO (08:52)
[2024-07-25] MEDS: lisinopriL 10 MG TABLET PO (08:54)
[2024-07-25] MEDS: clonazePAM 1 MG TABLET PO (08:54)
[2024-07-25] MEDS: cloNIDine HCL 0.1 MG TABLET PO ×3 (08:54→20:20)
[2024-07-25] MEDS: FLUoxetine HCl 20 MG CAPSULE PO (08:54)
[2024-07-25] MEDS: Topiramate 25 MG TABLET PO (08:55)
[2024-07-25] MEDS: Furosemide 20 MG TABLET PO (08:55)
[2024-07-25] MEDS: Fluticasone Propionate Nasal 16 GM SPRAY 1 SPRAY NOSTRIL-B ×2 (09:05→20:18)
[2024-07-25] MEDS: Promethazine HCL 25 MG TABLET 50 MG PO ×2 (09:06→20:28)
[2024-07-25] MEDS: diphenhydrAMINE HCL 25 MG CAPSULE 50 MG PO (09:06)
--- NOTE | 2024-07-25 15:29 | P.PNPSI_ITS ---
Subjective Subjective Date of Service: 07/25/24 Reason For Visit: Bipolar unspecified Subjective Notes: Conditional Voluntary Healthcare Proxy: No Guardianship: No Medical Problems Affecting Mental Status: Yes (over medication ? low bp) Interim History: 64 yo homeless woman who hopes to go back to rehab at [place] (though edema is better) nodding off on interview- likely needs benzo taper- because defensive and reactive when confronted about falling asleep I know what you are saying I was just closing my eyes_ reviewed multi skilled operator and patient has had 12 prescribers and 7 pharmacies in last year=- for clonazepam, gabapentin, alprazolam. I suspect underlying issue is one of substance misuse as well as homelessness Possibly a detox setting might be best with transition to outpatient after- down in area she is from. No longer has car to go to - and winter is approaching. Medication Compliance: Yes (angry I lowered clonidine) Side effects from medications: Yes (nodding off) Attending Groups: Intermittent Review of Systems Acute medical concerns: Yes bp too low on clonidine dosing of 0.2mg tid so changed to 0.1mg tid Medical Review of Systems: unchanged Review of Systems: still co sensitive skin and lesion on scalp - as well as not being on correct medications Mental Status Exam Mental Status Exam Patient Appearance: Unkempt (gave her sensitive soap - but she also wants some special shampoo!) Patient Orientation: Person, Place, Time and Situation Level of Consciousness: Drowsy Patient Behavior: Cooperative, Resistive to Care and Poor Eye Contact (when closing eyes) Mood Description: Calm Affect Description: Labile (mildly reactive) Patient Cognition Impaired: No Ability to Follow Directions: Fair Speech Pattern: Clear, Slurred (mild) and Rambling Hallucinations: None Delusions: Not Present Thought Process: Distracted Thought Content: positive for Perseveration (on meds and health somatic- sensitivities) Depressive Symptoms: Sleeping More Than Usual and Difficulty Concentrating Judgement: Fair Diagnostics Vital Signs (24Hr): Vital Signs - 24 hr 07/24/24 20:00 07/24/24 20:35 07/24/24 20:57 Temperature 97.8 F Pulse Rate 63 Respiratory Rate 16 Blood Pressure 98/61 98/61 117/69 Pulse Oximetry 95 Oxygen Delivery Method Room Air 07/25/24 08:27 Temperature 96.9 F Pulse Rate 69 Respiratory Rate 17 Blood Pressure 125/60 Pulse Oximetry 94 Oxygen Delivery Method Room Air Labs Labs: Laboratory Results - last 48 hr 07/24/24 09:39 Estimat Average Glucose 103 Hemoglobin A1c % 5.2 Triglycerides 121 Cholesterol 191 LDL Cholesterol, Calc 96 HDL Cholesterol 71 Vitamin B12 532 Folate 14.8 TSH 2.07 Free T4 0.93 Medications Medications Current Medications Acetaminophen (Acetaminophen 325 Mg Tablet) 650 mg PO Q6H PRN PRN Reason: Headache/Pain Mild Scale (1-3) Al Hydroxide/Mg Hydroxide (Magnesium Hydrox/Alum Hydrox 30 Ml Oral.Susp) 30 ml PO Q6H PRN PRN Reason: Heartburn/Nausea Albuterol Sulfate (Albuterol Sulfate 90 Mcg 8 Gm Inhaler) 1 puff INHALE Q2H PRN PRN Reason: asthma Alprazolam (Alprazolam 0.5 Mg Tablet) 1 mg PO DAILY PRN PRN Reason: panic attack Amlodipine Besylate (Amlodipine Besylate 2.5 Mg Tablet) 2.5 mg PO DAILY [facility]; Protocol Last Admin: 07/25/24 08:52 Dose: 2.5 mg Clonazepam (Clonazepam 1 Mg Tablet) 1 mg PO BID [facility] Last Admin: 07/25/24 08:54 Dose: 1 mg Clonidine HCl (Clonidine Hcl 0.1 Mg Tablet) 0.1 mg PO TID [facility]; Protocol Last Admin: 07/25/24 08:54 Dose: 0.1 mg Diphenhydramine HCl (Diphenhydramine Hcl 25 Mg Capsule) 50 mg PO TID PRN PRN Reason: insomnia Last Admin: 07/25/24 09:06 Dose: 50 mg Fluoxetine HCl (Fluoxetine Hcl 20 Mg Capsule) 20 mg PO DAILY [facility] Last Admin: 07/25/24 08:54 Dose: 20 mg Fluticasone Propionate (Fluticasone Propionate Nasal 16 Gm [place]) 1 spray NOSTRIL-B BID [facility] Last Admin: 07/25/24 09:05 Dose: 1 spray Furosemide (Furosemide 20 Mg Tablet) 20 mg PO DAILY [facility]; Protocol Last Admin: 07/25/24 08:55 Dose: 20 mg Gabapentin (Gabapentin 400 Mg Capsule) 800 mg PO TID [facility] Last Admin: 07/25/24 08:52 Dose: 800 mg Hydroxyzine HCl (Hydroxyzine Hcl 25 Mg Tablet) 25 mg PO Q6H PRN PRN Reason: Anxiety Lisinopril (Lisinopril 10 Mg Tablet) 10 mg PO DAILY [facility]; Protocol Last Admin: 07/25/24 08:54 Dose: 10 mg Magnesium Hydroxide (Milk Of Magnesia 30 Ml Oral.Susp) 30 ml PO DAILY PRN PRN Reason: Constipation Methadone HCl (Methadone Hcl 20 Mg/2 Ml Oral.Conc) 130 mg PO DAILY [facility] Last Admin: 07/25/24 08:46 Dose: 130 mg Mirtazapine (Mirtazapine 30 Mg Tablet) 30 mg PO BEDTIME [facility] Last Admin: 07/24/24 20:25 Dose: 30 mg Nicotine (Nicotine 21 Mg Patch.Td24) 21 mg TRANSDERMA DAILY [facility] Last Admin: 07/25/24 08:58 Dose: Not Given Nicotine Polacrilex (Nicotine Polacrilex 2 Mg Gum) 2 mg BUCCAL Q2H PRN PRN Reason: Nicotine Cravings Olanzapine (Olanzapine 2.5 Mg Tablet) 2.5 mg PO Q4H PRN PRN Reason: anxiety/restlessness Omeprazole (Omeprazole 20 Mg Capsule.Dr) 20 mg PO DAILY@0630 [facility] Last Admin: 07/25/24 06:37 Dose: 20 mg Promethazine HCl (Promethazine Hcl 25 Mg Tablet) 50 mg PO Q8H PRN PRN Reason: nausea Last Admin: 07/25/24 09:06 Dose: 50 mg Topiramate (Topiramate 25 Mg Tablet) 25 mg PO DAILY [facility] Last Admin: 07/25/24 08:55 Dose: 25 mg Trazodone HCl (Trazodone Hcl 50 Mg Tablet) 50 mg PO BEDTIME MRX1 PRN PRN Reason: Insomnia Vitamin D (Cholecalciferol (Vitamin D3) 25 Mcg Tablet) 25 mcg PO DAILY [facility] Last Admin: 07/25/24 08:52 Dose: 25 mcg Allergies Allergies Allergy/AdvReac Type Severity Reaction Status Date / Time codeine Allergy Unknown Verified 07/23/24 22:55 Sulfa (Sulfonamide Allergy Unknown Verified 07/23/24 22:55 Antibiotics) Assessment & Plan Assessment & Plan (1) PUD (peptic ulcer disease): Status: Acute Code(s): K27.9 - Peptic ulcer, site unspecified, unspecified as acute or chronic, without hemorrhage or perforation Assessment and Plan: on omeprazole here had had bloody stools few weeks ago [place] Hospitalization fora week (2) Essential hypertension: Status: Acute Code(s): I10 - Essential (primary) hypertension (3) Bipolar 1 disorder with moderate zeke: Status: Acute Code(s): F31.12 - Bipolar disorder, current episode manic without psychotic features, moderate Assessment and Plan: on gabapentin (maybe for pain ) but also fluoxetine 20mg (someone had increased her to 60mg? by her report- she went back down to 20mg- (4) Benzodiazepine dependence: Status: Acute Code(s): F13.20 - Sedative, hypnotic or anxiolytic dependence, uncomplicated Assessment and Plan: many years dependence- likely no longer useful - but would be difficult/may be some risk of tapering though should be considered given methadone/gabapentin combo 07/25 - decreased clonazepam to 0.5mg tid and dced alprazolam prn l (5) Opiate dependence: Status: Acute Code(s): F11.20 - Opioid dependence, uncomplicated Assessment and Plan: on methadone for chronic back pain (6) Panic: Status: Acute Code(s): F41.0 - Panic disorder [episodic paroxysmal anxiety] Assessment and Plan: ? trauma ptsd- need further information/interviewing- Plan 64 yo WF who likely took too much medication prior to court- or drug drug interaction from combo of benzo, gabapentin and methadone- resulting in lower level of consciousness and getting narcan became agitated- now admtted due to this behavior - and ? manicky presentation- 07/25 - lowered benzo and dced hydroxyzine, lowered benadryl= -recommend detox- did not discuss with patient- Patient educated on: medication risk/benefits, substance abuse and medical condition Informed Consent: understands and further education needed Reason for continued inpatient stay Substantial Risk for: inability to function, rapid decompensation and med/psych decompensation Time Spent With Patient Time: Total time managing care of this patient today ____ minutes.
[2024-07-25 15:48] VITALS: BP 127/80
[2024-07-25] MEDS: Acetaminophen 325 MG TABLET 650 MG PO (17:57)
[2024-07-25 17:59] VITALS: BMI 33.1
[2024-07-25 20:00] VITALS: BP 112/76; PULSE 83; RESP 16; TEMP 36.1; O2SAT 96
[2024-07-25 20:20] VITALS: BP 112/76
[2024-07-25] MEDS: Mirtazapine 30 MG TABLET PO (20:20)
[2024-07-25] MEDS: clonazePAM 0.5 MG TABLET PO (20:20)
[2024-07-25] MEDS: diphenhydrAMINE HCL 25 MG CAPSULE PO (20:28)
[2024-07-25] MEDS: Ibuprofen 400 MG TABLET PO (21:36)
[2024-07-26] MEDS: Omeprazole 20 MG CAPSULE.DR PO (06:10)
[2024-07-26] MEDS: methADONE HCl 20 MG/2 ML ORAL.CONC 130 MG PO (08:10)
[2024-07-26 08:16] VITALS: BP 126/70; PULSE 67; RESP 17; TEMP 36.1; O2SAT 95
[2024-07-26] MEDS: Gabapentin 400 MG CAPSULE 800 MG PO ×3 (08:17→20:20)
[2024-07-26] MEDS: Cholecalciferol (Vitamin D3) 25 MCG TABLET PO (08:17)
[2024-07-26] MEDS: Furosemide 20 MG TABLET PO (08:17)
[2024-07-26] MEDS: FLUoxetine HCl 20 MG CAPSULE PO (08:17)
[2024-07-26] MEDS: lisinopriL 10 MG TABLET PO (08:18)
[2024-07-26] MEDS: clonazePAM 0.5 MG TABLET PO ×3 (08:18→20:20)
[2024-07-26] MEDS: cloNIDine HCL 0.1 MG TABLET PO ×3 (08:18→20:20)
[2024-07-26] MEDS: amLODIPine Besylate 2.5 MG TABLET PO (08:35)
[2024-07-26] MEDS: Fluticasone Propionate Nasal 16 GM SPRAY 1 SPRAY NOSTRIL-B ×2 (10:16→20:20)
[2024-07-26] MEDS: Promethazine HCL 25 MG TABLET 50 MG PO ×2 (10:17→20:24)
[2024-07-26] MEDS: diphenhydrAMINE HCL 25 MG CAPSULE 50 MG PO ×2 (10:17→20:24)
[2024-07-26] MEDS: Topiramate 25 MG TABLET PO (10:20)
--- NOTE | 2024-07-26 13:39 | P.PNPSI_ITS ---
Subjective Subjective Date of Service: 07/26/24 Reason For Visit: Bipolar unspecified Subjective Notes: Conditional Voluntary Interim History: The nursing staff reported the patient slept 6 hours she had been irritable and she signed a 3 day notice.. Apparently she was on delirium when she was in the emergency room and she needed to be Narcan. She is chronically homeless. On interview the patient denies new symptoms she states that she signed a 3 day notice and she wants to leave. She advocated for more benzodiazepines. Mental Status Exam Mental Status Exam Patient Appearance: Well Grooomed and Appropriate Patient Orientation: Person and Situation Level of Consciousness: Awake and Appropriate Patient Behavior: Guarded and Passive Mood Description: Withdrawn Affect Description: Constricted Patient Cognition Impaired: Yes Ability to Follow Directions: Good Speech Pattern: Clear Hallucinations: None Delusions: Not Present Thought Process: Distracted and Slowed Thinking Thought Content: positive for [place] and positive for Poverty of Content Judgement: Fair Diagnostics Vital Signs (24Hr): Vital Signs - 24 hr 07/25/24 15:48 07/25/24 20:00 07/25/24 20:20 Temperature 97 F Pulse Rate 83 Respiratory Rate 16 Blood Pressure 127/80 112/76 112/76 Pulse Oximetry 96 Oxygen Delivery Method Room Air 07/26/24 08:16 Temperature 97 F Pulse Rate 67 Respiratory Rate 17 Blood Pressure 126/70 Pulse Oximetry 95 Oxygen Delivery Method Room Air BMI result Body Mass Index 33.1 Medications Medications Current Medications Acetaminophen (Acetaminophen 325 Mg Tablet) 650 mg PO Q6H PRN PRN Reason: Headache/Pain Mild Scale (1-3) Last Admin: 07/25/24 17:57 Dose: 650 mg Al Hydroxide/Mg Hydroxide (Magnesium Hydrox/Alum Hydrox 30 Ml Oral.Susp) 30 ml PO Q6H PRN PRN Reason: Heartburn/Nausea Albuterol Sulfate (Albuterol Sulfate 90 Mcg 8 Gm Inhaler) 1 puff INHALE Q2H PRN PRN Reason: asthma Amlodipine Besylate (Amlodipine Besylate 2.5 Mg Tablet) 2.5 mg PO DAILY [facility]; Protocol Last Admin: 07/26/24 08:35 Dose: 2.5 mg Clonazepam (Clonazepam 0.5 Mg Tablet) 0.5 mg PO TID [facility] Last Admin: 07/26/24 08:18 Dose: 0.5 mg Clonidine HCl (Clonidine Hcl 0.1 Mg Tablet) 0.1 mg PO TID [facility]; Protocol Last Admin: 07/26/24 08:18 Dose: 0.1 mg Diphenhydramine HCl (Diphenhydramine Hcl 25 Mg Capsule) 50 mg PO Q8H PRN PRN Reason: itching and anxiety Last Admin: 07/26/24 10:17 Dose: 50 mg Fluoxetine HCl (Fluoxetine Hcl 20 Mg Capsule) 20 mg PO DAILY [facility] Last Admin: 07/26/24 08:17 Dose: 20 mg Fluticasone Propionate (Fluticasone Propionate Nasal 16 Gm [place]) 1 spray NOSTRIL-B BID [facility] Last Admin: 07/26/24 10:16 Dose: 1 spray Furosemide (Furosemide 20 Mg Tablet) 20 mg PO DAILY [facility]; Protocol Last Admin: 07/26/24 08:17 Dose: 20 mg Gabapentin (Gabapentin 400 Mg Capsule) 800 mg PO TID [facility] Last Admin: 07/26/24 08:17 Dose: 800 mg Ibuprofen (Ibuprofen 400 Mg Tablet) 400 mg PO TIDWM PRN PRN Reason: moderate pain Last Admin: 07/25/24 21:36 Dose: 400 mg Lisinopril (Lisinopril 10 Mg Tablet) 10 mg PO DAILY [facility]; Protocol Last Admin: 07/26/24 08:18 Dose: 10 mg Magnesium Hydroxide (Milk Of Magnesia 30 Ml Oral.Susp) 30 ml PO DAILY PRN PRN Reason: Constipation Methadone HCl (Methadone Hcl 20 Mg/2 Ml Oral.Conc) 130 mg PO DAILY [facility] Last Admin: 07/26/24 08:10 Dose: 130 mg Mirtazapine (Mirtazapine 30 Mg Tablet) 30 mg PO BEDTIME [facility] Last Admin: 07/25/24 20:20 Dose: 30 mg Nicotine (Nicotine 21 Mg Patch.Td24) 21 mg TRANSDERMA DAILY [facility] Last Admin: 07/26/24 08:22 Dose: Not Given Nicotine Polacrilex (Nicotine Polacrilex 2 Mg Gum) 2 mg BUCCAL Q2H PRN PRN Reason: Nicotine Cravings Olanzapine (Olanzapine 2.5 Mg Tablet) 2.5 mg PO Q4H PRN PRN Reason: anxiety/restlessness Omeprazole (Omeprazole 20 Mg Capsule.Dr) 20 mg PO DAILY@0630 [facility] Last Admin: 07/26/24 06:10 Dose: 20 mg Promethazine HCl (Promethazine Hcl 25 Mg Tablet) 50 mg PO Q8H PRN PRN Reason: nausea Last Admin: 07/26/24 10:17 Dose: 50 mg Topiramate (Topiramate 25 Mg Tablet) 25 mg PO DAILY [facility] Last Admin: 07/26/24 10:20 Dose: 25 mg Trazodone HCl (Trazodone Hcl 50 Mg Tablet) 50 mg PO BEDTIME MRX1 PRN PRN Reason: Insomnia Vitamin D (Cholecalciferol (Vitamin D3) 25 Mcg Tablet) 25 mcg PO DAILY [facility] Last Admin: 07/26/24 08:17 Dose: 25 mcg Allergies Allergies Allergy/AdvReac Type Severity Reaction Status Date / Time codeine Allergy Unknown Verified 07/23/24 22:55 Sulfa (Sulfonamide Allergy Unknown Verified 07/23/24 22:55 Antibiotics) Assessment & Plan Assessment & Plan (1) PUD (peptic ulcer disease): Status: Acute Code(s): K27.9 - Peptic ulcer, site unspecified, unspecified as acute or chronic, without hemorrhage or perforation Assessment and Plan: on omeprazole here had had bloody stools few weeks ago [facility] fora week (2) Essential hypertension: Status: Acute Code(s): I10 - Essential (primary) hypertension (3) Bipolar 1 disorder with moderate zeke: Status: Acute Code(s): F31.12 - Bipolar disorder, current episode manic without psychotic features, moderate Assessment and Plan: on gabapentin (maybe for pain ) but also fluoxetine 20mg (someone had increased her to 60mg? by her report- she went back down to 20mg- (4) Benzodiazepine dependence: Status: Acute Code(s): F13.20 - Sedative, hypnotic or anxiolytic dependence, uncomplicated Assessment and Plan: many years dependence- likely no longer useful - but would be difficult/may be some risk of tapering though should be considered given methadone/gabapentin combo 07/25 - decreased clonazepam to 0.5mg tid and dced alprazolam prn l 07/26 keep same treatment. Gather more collateral information (5) Opiate dependence: Status: Acute Code(s): F11.20 - Opioid dependence, uncomplicated Assessment and Plan: on methadone for chronic back pain (6) Panic: Status: Acute Code(s): F41.0 - Panic disorder [episodic paroxysmal anxiety] Assessment and Plan: ? trauma ptsd- need further information/interviewing- Plan 64 yo WF who likely took too much medication prior to court- or drug drug interaction from combo of benzo, gabapentin and methadone- resulting in lower level of consciousness and getting narcan became agitated- now admtted due to this behavior - and ? michael presentation- 07/25 - lowered benzo and dced hydroxyzine, lowered benadryl= -recommend detox- did not discuss with patient- Reason for continued inpatient stay Substantial Risk for: inability to function, rapid decompensation and med/psych decompensation Time Spent With Patient Time: Total time managing care of this patient today __20__ minutes.
[2024-07-26 14:49] VITALS: BP 114/66
[2024-07-26 20:00] VITALS: BP 129/88; PULSE 91; RESP 16; TEMP 36.1; O2SAT 96
[2024-07-26 20:20] VITALS: BP 129/88
[2024-07-26] MEDS: Mirtazapine 30 MG TABLET PO (20:20)
[2024-07-27] VITALS (8 sets, daily range): BP systolic 136–150; BP diastolic 78–94; PULSE 81–91; RESP 16–17; TEMP 36.2–36.6; O2SAT 97–98
[2024-07-27] MEDS: Omeprazole 20 MG CAPSULE.DR PO (05:45)
--- NOTE | 2024-07-27 08:30 | P.PNPSI_ITS ---
Subjective Subjective Date of Service: 07/27/24 Reason For Visit: Bipolar unspecified Subjective Notes: Conditional Voluntary and 3 Day Interim History: The nursing staff reported the patient had been requesting more Klonopin she slept well she was found to be drug-seeking. On interview the patient denies new symptoms she signed a 3 day notice she is able to contract for safety she wants to live tomorrow. Mental Status Exam Mental Status Exam Patient Appearance: Appropriate Patient Orientation: Person Level of Consciousness: Restless Patient Behavior: Appropriate Mood Description: Calm Affect Description: Constricted Patient Cognition Impaired: Yes Ability to Follow Directions: Good Speech Pattern: Clear Hallucinations: None Delusions: Not Present Thought Process: Distracted and Evasive Thought Content: positive for [place] and positive for Circumstantial Judgement: Fair Diagnostics Vital Signs (24Hr): Vital Signs - 24 hr 07/26/24 14:49 07/26/24 20:00 07/26/24 20:20 Temperature 97 F Pulse Rate 91 Respiratory Rate 16 Blood Pressure 114/66 129/88 129/88 Pulse Oximetry 96 Oxygen Delivery Method Room Air BMI result Body Mass Index 33.1 Medications Medications Current Medications Acetaminophen (Acetaminophen 325 Mg Tablet) 650 mg PO Q6H PRN PRN Reason: Headache/Pain Mild Scale (1-3) Last Admin: 07/25/24 17:57 Dose: 650 mg Al Hydroxide/Mg Hydroxide (Magnesium Hydrox/Alum Hydrox 30 Ml Oral.Susp) 30 ml PO Q6H PRN PRN Reason: Heartburn/Nausea Albuterol Sulfate (Albuterol Sulfate 90 Mcg 8 Gm Inhaler) 1 puff INHALE Q2H PRN PRN Reason: asthma Amlodipine Besylate (Amlodipine Besylate 2.5 Mg Tablet) 2.5 mg PO DAILY DONALD; Protocol Last Admin: 07/26/24 08:35 Dose: 2.5 mg Clonazepam (Clonazepam 0.5 Mg Tablet) 0.5 mg PO TID DONALD Last Admin: 07/26/24 20:20 Dose: 0.5 mg Clonidine HCl (Clonidine Hcl 0.1 Mg Tablet) 0.1 mg PO TID DONALD; Protocol Last Admin: 07/26/24 20:20 Dose: 0.1 mg Diphenhydramine HCl (Diphenhydramine Hcl 25 Mg Capsule) 50 mg PO Q8H PRN PRN Reason: itching and anxiety Last Admin: 07/26/24 20:24 Dose: 50 mg Fluoxetine HCl (Fluoxetine Hcl 20 Mg Capsule) 20 mg PO DAILY [facility] Last Admin: 07/26/24 08:17 Dose: 20 mg Fluticasone Propionate (Fluticasone Propionate Nasal 16 Gm Hardy) 1 spray NOSTRIL-B BID [facility] Last Admin: 07/26/24 20:20 Dose: 1 spray Furosemide (Furosemide 20 Mg Tablet) 20 mg PO DAILY [facility]; Protocol Last Admin: 07/26/24 08:17 Dose: 20 mg Gabapentin (Gabapentin 400 Mg Capsule) 800 mg PO TID [facility] Last Admin: 07/26/24 20:20 Dose: 800 mg Ibuprofen (Ibuprofen 400 Mg Tablet) 400 mg PO TIDWM PRN PRN Reason: moderate pain Last Admin: 07/25/24 21:36 Dose: 400 mg Lisinopril (Lisinopril 10 Mg Tablet) 10 mg PO DAILY [facility]; Protocol Last Admin: 07/26/24 08:18 Dose: 10 mg Magnesium Hydroxide (Milk Of Magnesia 30 Ml Oral.Susp) 30 ml PO DAILY PRN PRN Reason: Constipation Methadone HCl (Methadone Hcl 20 Mg/2 Ml Oral.Conc) 130 mg PO DAILY [facility] Last Admin: 07/26/24 08:10 Dose: 130 mg Mirtazapine (Mirtazapine 30 Mg Tablet) 30 mg PO BEDTIME [facility] Last Admin: 07/26/24 20:20 Dose: 30 mg Nicotine (Nicotine 21 Mg Patch.Td24) 21 mg TRANSDERMA DAILY [facility] Last Admin: 07/26/24 08:22 Dose: Not Given Nicotine Polacrilex (Nicotine Polacrilex 2 Mg Gum) 2 mg BUCCAL Q2H PRN PRN Reason: Nicotine Cravings Olanzapine (Olanzapine 2.5 Mg Tablet) 2.5 mg PO Q4H PRN PRN Reason: anxiety/restlessness Omeprazole (Omeprazole 20 Mg Capsule.Dr) 20 mg PO DAILY@0630 [facility] Last Admin: 07/27/24 05:45 Dose: 20 mg Promethazine HCl (Promethazine Hcl 25 Mg Tablet) 50 mg PO Q8H PRN PRN Reason: nausea Last Admin: 07/26/24 20:24 Dose: 50 mg Topiramate (Topiramate 25 Mg Tablet) 25 mg PO DAILY [facility] [place] Last Admin: 07/26/24 10:20 Dose: 25 mg Trazodone HCl (Trazodone Hcl 50 Mg Tablet) 50 mg PO BEDTIME MRX1 PRN PRN Reason: Insomnia Vitamin D (Cholecalciferol (Vitamin D3) 25 Mcg Tablet) 25 mcg PO DAILY DONALD Last Admin: 07/26/24 08:17 Dose: 25 mcg Allergies Allergies Allergy/AdvReac Type Severity Reaction Status Date / Time codeine Allergy Unknown Verified 07/23/24 22:55 Sulfa (Sulfonamide Allergy Unknown Verified 07/23/24 22:55 Antibiotics) Assessment & Plan Assessment & Plan (1) PUD (peptic ulcer disease): Status: Acute Code(s): K27.9 - Peptic ulcer, site unspecified, unspecified as acute or chronic, without hemorrhage or perforation Assessment and Plan: on omeprazole here had had bloody stools few weeks ago [facility] for[facility] week (2) Essential hypertension: Status: Acute Code(s): I10 - Essential (primary) hypertension (3) Bipolar 1 disorder with moderate zeke: Status: Acute Code(s): F31.12 - Bipolar disorder, current episode manic without psychotic features, moderate Assessment and Plan: on gabapentin (maybe for pain ) but also fluoxetine 20mg (someone had increased her to 60mg? by her report- she went back down to 20mg- (4) Benzodiazepine dependence: Status: Acute Code(s): F13.20 - Sedative, hypnotic or anxiolytic dependence, uncomplicated Assessment and Plan: many years dependence- likely no longer useful - but would be difficult/may be some risk of tapering though should be considered given methadone/gabapentin combo 07/25 - decreased clonazepam to 0.5mg tid and dced alprazolam prn l 07/26 keep same treatment. Gather more collateral information 07/27 keep same treatment discharge tomorrow as per 3 day notice no evidence of safety concerns (5) Opiate dependence: Status: Acute Code(s): F11.20 - Opioid dependence, uncomplicated Assessment and Plan: on methadone for chronic back pain (6) Panic: Status: Acute Code(s): F41.0 - Panic disorder [episodic paroxysmal anxiety] Assessment and Plan: ? trauma ptsd- need further information/interviewing- Plan 64 yo WF who likely took too much medication prior to court- or drug drug interaction from combo of benzo, gabapentin and methadone- resulting in lower level of consciousness and getting narcan became agitated- now admtted due to this behavior - and ? manicky presentation- 07/25 - lowered benzo and dced hydroxyzine, lowered benadryl= -recommend detox- did not discuss with patient- Reason for continued inpatient stay Substantial Risk for: inability to function, rapid decompensation and med/psych decompensation Time Spent With Patient Time: Total time managing care of this patient today __20__ minutes.
[2024-07-27] MEDS: methADONE HCl 20 MG/2 ML ORAL.CONC 130 MG PO (08:40)
[2024-07-27] MEDS: FLUoxetine HCl 20 MG CAPSULE PO (08:44)
[2024-07-27] MEDS: Cholecalciferol (Vitamin D3) 25 MCG TABLET PO (08:45)
[2024-07-27] MEDS: Gabapentin 400 MG CAPSULE 800 MG PO ×3 (08:45→20:18)
[2024-07-27] MEDS: amLODIPine Besylate 2.5 MG TABLET PO (08:46)
[2024-07-27] MEDS: diphenhydrAMINE HCL 25 MG CAPSULE 50 MG PO ×2 (08:47→20:42)
[2024-07-27] MEDS: clonazePAM 0.5 MG TABLET PO ×3 (08:48→20:18)
[2024-07-27] MEDS: Furosemide 20 MG TABLET PO (08:48)
[2024-07-27] MEDS: lisinopriL 10 MG TABLET PO (08:49)
[2024-07-27] MEDS: cloNIDine HCL 0.1 MG TABLET PO ×3 (08:50→20:18)
[2024-07-27] MEDS: Topiramate 25 MG TABLET PO (08:50)
[2024-07-27] MEDS: Promethazine HCL 25 MG TABLET 50 MG PO ×2 (08:53→20:42)
[2024-07-27] MEDS: Mirtazapine 30 MG TABLET PO (20:19)
[2024-07-27] MEDS: Fluticasone Propionate Nasal 16 GM SPRAY 1 SPRAY NOSTRIL-B (20:19)
[2024-07-28] MEDS: Omeprazole 20 MG CAPSULE.DR PO (05:45)
[2024-07-28] MEDS: methADONE HCl 20 MG/2 ML ORAL.CONC 130 MG PO (07:50)
[2024-07-28] MEDS: diphenhydrAMINE HCL 25 MG CAPSULE 50 MG PO (08:12)
[2024-07-28] MEDS: Furosemide 20 MG TABLET PO (08:12)
[2024-07-28] MEDS: Topiramate 25 MG TABLET PO (08:12)
[2024-07-28] MEDS: amLODIPine Besylate 2.5 MG TABLET PO (08:13)
[2024-07-28] MEDS: FLUoxetine HCl 20 MG CAPSULE PO (08:13)
[2024-07-28] MEDS: Promethazine HCL 25 MG TABLET 50 MG PO (08:13)
[2024-07-28] MEDS: lisinopriL 10 MG TABLET PO (08:13)
[2024-07-28] MEDS: cloNIDine HCL 0.1 MG TABLET PO (08:13)
[2024-07-28] MEDS: Cholecalciferol (Vitamin D3) 25 MCG TABLET PO (08:13)
[2024-07-28] MEDS: Gabapentin 400 MG CAPSULE 800 MG PO (08:13)
[2024-07-28] MEDS: clonazePAM 0.5 MG TABLET PO (08:13)
[2024-07-28] MEDS: Fluticasone Propionate Nasal 16 GM SPRAY 1 SPRAY NOSTRIL-B (08:14)
--- NOTE | 2024-07-28 08:18 | PM.PSYDC ---
DS: Providers Provider Date of Service: 07/28/24 Date of admission: 07/23/24 18:11 Date of discharge: 07/28/24 Primary care physician: Unknown Physician Consults: 07/23/24 22:49 Consult to Hospitalist Routine Comment: Consulting Provider: [facility] Hospitalists Reason For Exam: OSH admission Attending physician on discharge: Hunter Manjarrez DS: Diagnosis Discharge Diagnosis (1) PUD (peptic ulcer disease): Status: Acute (2) Essential hypertension: Status: Acute (3) Bipolar 1 disorder with moderate zeke: Status: Acute (4) Benzodiazepine dependence: Status: Acute (5) Opiate dependence: Status: Acute (6) Panic: Status: Acute DS: Medications Discharge Medications Home Medications: Home Medications ?Medication ?Instructions ?Recorded ?Confirmed albuterol sulfate 90 mcg/actuation 1 puff inhalation Q2H PRN asthma 07/23/24 07/24/24 aerosol inhaler alprazolam 1 mg tablet 1 mg PO DAILY PRN panic attack 07/23/24 07/24/24 amlodipine 2.5 mg tablet 2.5 mg PO DAILY blood pressure 07/23/24 07/24/24 diphenhydramine HCl 50 mg capsule 50 mg PO BEDTIME PRN insomnia 07/23/24 07/24/24 (Banophen) Topamax 25 mg PO DAILY 07/24/24 07/24/24 cholecalciferol (vitamin D3) 25 mcg PO DAILY 07/24/24 07/24/24 clonazepam 1 mg tablet 1 mg PO BID anxiety 07/24/24 07/24/24 clonidine HCl 0.2 mg tablet 0.2 mg PO TID anxiety 07/24/24 07/24/24 docusate sodium 100 mg PO 07/24/24 fluoxetine 20 mg PO DAILY 07/24/24 07/24/24 fluticasone propionate 50 1 spray intranasal BID 07/24/24 07/24/24 mcg/actuation nasal spray,suspension furosemide 40 mg tablet 40 mg PO DAILY 07/24/24 07/24/24 gabapentin 800 mg tablet 800 mg PO TID 07/24/24 07/24/24 ibuprofen 800 mg tablet 800 mg PO Q8H PRN pain 07/24/24 07/24/24 lisinopril 10 mg tablet 10 mg PO DAILY 07/24/24 07/24/24 methadone 130 mg PO DAILY 07/24/24 07/24/24 mirtazapine 30 mg tablet 30 mg PO BEDTIME 07/24/24 07/24/24 nicotine 21 mg transdermal DAILY 07/24/24 07/24/24 omeprazole 20 mg capsule,delayed 20 mg PO QAM 07/24/24 07/24/24 release pantoprazole 40 mg tablet,delayed 40 mg PO DAILY 07/24/24 07/24/24 release promethazine 50 mg tablet 50 mg PO Q8H PRN nausea 07/24/24 07/24/24 Mental Status Exam Mental Status Exam Patient Appearance: Well Grooomed and Appropriate Patient Orientation: Person and Situation Level of Consciousness: Awake and Appropriate Patient Behavior: Cooperative Mood Description: Calm Affect Description: Labile Patient Cognition Impaired: Yes Ability to Follow Directions: Fair Speech Pattern: Clear Hallucinations: None Delusions: Not Present Thought Process: Evasive Thought Content: positive for [place] and positive for Circumstantial Judgement: Fair Data Data Completed and Pending Completed studies during hospitalization [Text1]: 07/24/24 09:39 Estimat Average Glucose 103 Hemoglobin A1c % 5.2 Triglycerides 121 Cholesterol 191 LDL Cholesterol, Calc 96 HDL Cholesterol 71 Vitamin B12 532 Folate 14.8 TSH 2.07 Free T4 0.93 DS: Summary Hospital Course Hospital Course: The patient is a 64-year-old female who was transferred from [facility]- after she was delirious/or xs somnolent at court after taking x number of benzos on top of gabapentin and methadone- though patient insists she was having a drug adverse event despite taking all the usual medications nothing extra . She then was transferred to [facility] from [facility] and given narcan somewhere in ambulance or er - and pt became agitated- She had gone to court from [facility] where she was getting rehab for bilateral edema after having had 2 bleeding ulcers the week before at [facility] and since patient is essentially homeless living in her car or other- ( awaiting issues with her sec 8 and river pilot ) Denies any labile behavior at [facility] and keeps repeating the place is run by 24 yo who has an ax to grind with patient- On admission, the patient signed a conditional voluntary and later on she is in a 3 day notice stating that she does not need to be admitted into the hospital. She was pleasant, superficially cooperative and she was upset that her Klonopin was discontinued and lowered from 1 mg p.o. t.i.d. to 0.5 p.o. t.i.d. since she was over-sedated. She advocated several times to increased back and add the Xanax that she had. She adamantly denies suicidal, homicidal thoughts, zeke, psychosis or any safety concerns. The patient refused aftercare, she wanted to go back to her community and since there were no safety concerns discharge planning was discussed. Time spent discussing smoking cessation with patient: 3 to 10 minutes Status at Discharge Cognitive/behavioral status at discharge: At baseline Functional status at discharge: independent ambulation Overall status at discharge: patient is back to baseline Time Spent with Patient Time attestation: Total time managing care of this patient today __30__ minutes. Time spent: Less than 30 minutes Discharge Plan Discharge Anticipated Discharge Date/Time: 07/28/24 10:00 Patient Disposition: Home, Self-Care Discharge Diagnosis: Bipolar disorder Opiate use disorder Benzodiazepine dependence Homelessness Referrals: Willie Restrepo [employer]CH[employer]ICIAN [Other] - 08/03/24 2:40 pm (Your follow up appointment will be with Nurse Practitioner Kaye. Your usual Doctor, was unavailable until october. You will be contacted if there is a cancelation but the final appointment right now is 08/03 at 2:40pm. The office is on the 6th floor [address].) Discharge Medications: New clonidine HCl 0.1 mg Tablet 0.1 mg PO TID 30 Days Qty: 90 0RF Protocol: Hold for SBP< HOLD for SBP < : 90 acetaminophen 325 mg Tablet 650 mg PO Q6H PRN (Reason: Headache/Pain Mild Scale (1-3)) 30 Days Qty: 30 0RF clonazepam 0.5 mg Tablet 0.5 mg PO TID 30 Days Qty: 90 0RF fluoxetine 20 mg Capsule 20 mg PO DAILY 30 Days Qty: 30 0RF topiramate 25 mg Tablet 25 mg PO DAILY 30 Days Qty: 30 0RF furosemide 20 mg Tablet 20 mg PO DAILY 30 Days Qty: 30 0RF Protocol: Hold for SBP< HOLD for SBP < : 90 cholecalciferol (vitamin D3) 25 mcg (1,000 unit) Tablet 25 mcg PO DAILY 30 Days Qty: 30 0RF naloxone [Narcan] 4 mg/actuation spray,non-aerosol 4 mg intranasal Q2M Qty: 2 0RF Rx Instructions: spray 1 dose into ONE nostril; alternate nostrils w each dose until help arrives Continued diphenhydramine HCl [Banophen] 50 mg capsule 50 mg PO BEDTIME PRN (Reason: insomnia) 30 Days Qty: 30 0RF ibuprofen 800 mg tablet 800 mg PO Q8H PRN (Reason: pain) 30 Days Qty: 60 0RF amlodipine 2.5 mg tablet 2.5 mg PO DAILY 30 Days Qty: 30 0RF gabapentin 800 mg tablet 800 mg PO TID 30 Days Qty: 90 0RF promethazine 50 mg tablet 50 mg PO Q8H PRN (Reason: nausea) 30 Days Qty: 30 0RF pantoprazole 40 mg tablet,delayed release (DR/EC) 40 mg PO DAILY 30 Days Qty: 30 0RF mirtazapine 30 mg tablet 30 mg PO BEDTIME 30 Days Qty: 30 0RF lisinopril 10 mg tablet 10 mg PO DAILY 30 Days Qty: 30 0RF albuterol sulfate 90 mcg/actuation HFA aerosol inhaler 1 puff inhalation Q2H PRN (Reason: asthma) Qty: 1 0RF fluticasone propionate 50 mcg/actuation spray,suspension 1 spray intranasal BID Qty: 1 0RF Discontinued alprazolam 1 mg tablet 1 mg PO DAILY PRN (Reason: panic attack) clonazepam 1 mg tablet 1 mg PO BID clonidine HCl 0.2 mg tablet 0.2 mg PO TID omeprazole 20 mg capsule,delayed release(DR/EC) 20 mg PO QAM furosemide 40 mg tablet 40 mg PO DAILY Topamax 25 mg PO DAILY cholecalciferol (vitamin D3) 25 mcg PO DAILY docusate sodium 100 mg PO fluoxetine 20 mg PO DAILY methadone 130 mg PO DAILY nicotine 21 mg transdermal DAILY Discharge Orders: Discharge Order (Routine); Ordered 07/28/24 Ordered By: Hunter Manjarrez Diet: Advance to usual diet Activity on Discharge: As tolerated Stand Alone Forms: Patient Portal Discharge page Print Language: Marshallese Care Plan Goals: Care plan goals achieved in this admission Health Concerns: Continue treatment with primary care physician Plan of Treatment: Continue with outpatient providers. The patient refused to give us consent to contact her primary psychiatrist or other healthcare providers besides his PCP Assessment: Middle-aged female with bipolar disorder, chronic homelessness, opiate use dependence, benzodiazepine dependence and other psychosocial stressors admitted for unsafe behaviors. The patient signed a 3 day notice and in the unit did not show immediate risk for self or others. The patient was able to contract for safety and she was to be discharged as soon as possible. Since there were no grounds to file a Section 7 and 8, the patient will be discharged to self.
[2024-07-28 08:30] VITALS: BP 170/88; PULSE 72; RESP 16; TEMP 36.4; O2SAT 99
== END 2024-07-28 13:06 | disposition home or self-care (01) | DRG 885 ==
PROVIDERS: Psychiatry & Neurology Psychiatry; Admitting Provider Psychiatry & Neurology Psychiatry; Visit Provider Psychiatry & Neurology Psychiatry
DX: F31.9 Bipolar disorder, unspecified (principal); F11.20 Opioid dependence, uncomplicated; Z59.02 Unsheltered homelessness; F13.20 Sedative, hypnotic or anxiolytic dependence, uncomplicated; I10 Essential (primary) hypertension; Z87.891 Personal history of nicotine dependence; Z87.11 Personal history of peptic ulcer disease; Z79.899 Other long term (current) drug therapy
CPT/HCPCS: 36415; 80061; 82607; 82746; 83036; 84439; 84443

== ENCOUNTER → 2024-07-23 18:11 | Outpatient (BNV) | payer MEDICARE, MEDICAID, SELFPAY | PROVIDERS: Admitting Provider Psychiatry & Neurology Psychiatry; Visit Provider Internal Medicine | DX: K27.9 Peptic ulcer, site unspecified, unspecified as acute or chronic, without hemorrhage or perforation (principal); I10 Essential (primary) hypertension | CPT/HCPCS: 99221 ==

== ENCOUNTER → 2024-07-23 18:11 | Outpatient (BNV) | payer MEDICARE, MEDICAID, SELFPAY | PROVIDERS: Admitting Provider Psychiatry & Neurology Psychiatry; Visit Provider Psychiatry & Neurology Psychiatry | DX: F31.12 Bipolar disorder, current episode manic without psychotic features, moderate (principal); F13.20 Sedative, hypnotic or anxiolytic dependence, uncomplicated; F11.20 Opioid dependence, uncomplicated; F41.0 Panic disorder [episodic paroxysmal anxiety] | CPT/HCPCS: 99231; 99232; 99238 ==